=== PATIENT | female | born 1970 | race Caucasian/White ===

== ENCOUNTER → 2020-07-28 | Outpatient (CLI) | payer BC | LOC: RAD 10:51 | DX: R05 Cough (principal); R07.81 Pleurodynia | CPT/HCPCS: 71046 ==

== ENCOUNTER → 2021-02-21 | Outpatient (CLI) | payer BC ==
[2021-02-21 10:29] LABS: RED BLOOD COUNT 4.75 M/UL (4.00-5.10)
[2021-02-21 10:41] LABS: BUN/CREATININE RATIO 19 (0-10)
== END ==
LOC: LAB 09:40
PROVIDERS: Physician Assistant
DX: R03.0 Elevated blood-pressure reading, without diagnosis of hypertension (principal)
CPT/HCPCS: 80053; 80061; 85025

== ENCOUNTER → 2021-03-16 | Outpatient (CLI) | payer BC | LOC: MAMO 11:25 | DX: Z12.39 Encounter for other screening for malignant neoplasm of breast (principal) | CPT/HCPCS: 77063; 77067 ==

== ENCOUNTER → 2021-04-24 | Day surgery (SDC) | payer BC | END | disposition home or self-care (01) | LOC: OR 06:48 | DX: Z12.11 Encounter for screening for malignant neoplasm of colon (principal); K63.5 Polyp of colon; K64.0 First degree hemorrhoids; K62.89 Other specified diseases of anus and rectum | CPT/HCPCS: 84703; J2704; J7040 ==